=== PATIENT | female | born 1940 | race Caucasian/White ===

== ENCOUNTER 2017-06-11 19:31 | Inpatient (IN) ==
[2017-06-11] MEDS ORDERED: SODIUM CHLORIDE 0.9% 1,000 ML IV STA (21:05)
[2017-06-11] MEDS ORDERED: CEFEPIME 2,000 MG in SODIUM CHLORIDE 0.9% 100 ML IV STA (21:05)
[2017-06-11] MEDS ORDERED: VANCOMYCIN INJ 1,000 MG in SODIUM CHLORIDE 0.9% 250 ML IV STA (21:06)
[2017-06-11 21:11] LABS: Basophils % 0.1 % (0.0-0.8); Eosinophils % 0.1 % (0.00-10.9); Hematocrit 33.2 VOL% (35.7-47.0); Immature Granulocytes % 0.5 %; Immature Granulocytes Absolute 0.07 #; Lymphocytes # 1.5 10*3/uL (1.4-4.0); Lymphocytes % 11.1 % (21.3-54.2); Mean Corpuscular HGB Conc 33.1 GM/DL (32-36); Mean Corpuscular Hemoglobin 30 PG (27-34); Mean Corpuscular Volume 91.7 FL (87-102); Monocytes # 1.5 10*3/uL (0.11-0.8); Monocytes % 10.8 % (1.7-12.7); Neutrophils # 10.5 10*3/uL (1.4-7.4); Neutrophils % 77.4 % (38.7-73.9); Platelet Count 251 T/CUMM (130-400); Red Blood Count 3.62 MC/CUMM (3.8-5.5); Red Cell Distribution Width 14.7 % (9.3-17.3); White Blood Count 13.5 T/CUMM (4-12)
[2017-06-11] MEDS ORDERED: VANCOMYCIN 1,000 MG VIAL ONE (23:34)
[2017-06-11 23:57] LABS: Apearance,Urine CLOUDY (Clear); Bacteria,Urine Occasional /HPF (Few); Bilirubin,Urine Negative (Negative); Blood, Urine Small mg/dL (Negative); Glucose,Urine (UA) Negative (Negative); Ketones,Urine Negative (Negative); Mucus,Urine Occasional /LPF (Occasional); Nitrite,Urine Negative (Negative); Protein,Urine 100 MG/DL; RBC,Urine 16 /HPF (0-4); Squamous Epithelial Cell,Urine Occasional /HPF (0-10); Urine Color Yellow (Yellow); Urine Specific Gravity 1.008 (1.001-1.035); Urine Urobilinogen < 2.0 EU/DL (0.2-1.0); WBC,Urine 42 /HPF (0-6)
[2017-06-12 01:20] LABS: Albumin 2.9 G/DL (3.4-5.0); Bilirubin,Total 0.4 MG/DL (0.2-1.0); Calcium 9.8 MG/DL (8.5-10.1); Osmolality,Calculated 280.5 MOS/KG (273-304); Potassium 5.2 MMOL/L (3.5-5.1); Total Protein 7.3 G/DL (6.4-8.3)
[2017-06-12] MEDS ORDERED: GLUCAGON 1 MG VIAL IM PRN (01:20)
[2017-06-12] MEDS ORDERED: ONDANSETRON 4 MG/2 ML VIAL IV PRN (01:20)
[2017-06-12] MEDS ORDERED: DEXTROSE 50% 25 GM/50 ML VIAL IV PRN (01:20)
[2017-06-12] MEDS: TACROLIMUS 0.5 MG CAPSULE PO SCH ×3 (02:20→20:37)
[2017-06-12] MEDS: MYCOPHENOLATE MOFETIL 250 MG CAPSULE PO SCH ×3 (02:20→20:39)
[2017-06-12] MEDS: ATENOLOL 50 MG TABLET PO SCH ×3 (02:20→21:55)
[2017-06-12] MEDS: LOSARTAN 50 MG TABLET PO SCH ×2 (02:20→09:20)
[2017-06-12] MEDS: SODIUM CHLORIDE 0.9% 1,000 ML IV SCH ×3 (02:26→11:07)
[2017-06-12] MEDS: ACETAMINOPHEN 500 MG TABLET PO PRN ×2 (02:33→20:56)
[2017-06-12] MEDS: ENOXAPARIN 30 MG/0.3 ML SYRINGE SUBCUT SCH ×2 (09:18→09:36)
[2017-06-12] MEDS: CHOLECALCIFEROL 1,000 UNIT TABLET PO SCH (09:18)
[2017-06-12] MEDS: DOCUSATE SODIUM 100 MG CAPSULE PO SCH ×2 (09:19→20:40)
[2017-06-12] MEDS: metFORMIN 500 MG TABLET PO SCH ×2 (09:19→16:47)
[2017-06-12] MEDS: sitaGLIPtin 100 MG TABLET PO SCH (09:19)
[2017-06-12] MEDS: FERROUS SULFATE 325 MG TABLET PO SCH ×2 (09:19→20:38)
[2017-06-12] MEDS: predniSONE 5 MG TABLET PO SCH (09:20)
[2017-06-12] MEDS: FEBUXOSTAT 80 MG TABLET PO SCH (09:20)
[2017-06-12] MEDS: PANTOPRAZOLE 40 MG TABLET PO SCH (09:20)
[2017-06-12] MEDS: ACYCLOVIR 200 MG CAPSULE PO SCH (09:20)
[2017-06-12] MEDS: MUPIROCIN 2% OINT 22 GM TUBE TOP SCH (15:55)
[2017-06-12] MEDS: SODIUM BICARB INJ 150 MEQ in STERILE WATER INJ 1,000 ML IV SCH (16:45)
[2017-06-12] MEDS: ASPIRIN EC 81 MG TABLET PO SCH (20:38)
[2017-06-12] MEDS: CEFEPIME 2,000 MG in SODIUM CHLORIDE 0.9% 50 ML IV SCH (20:40)
[2017-06-12] MEDS: LOSARTAN 25 MG TABLET PO SCH (20:41)
[2017-06-13] MEDS: SODIUM BICARB INJ 150 MEQ in STERILE WATER INJ 1,000 ML IV SCH ×2 (01:58→15:42)
[2017-06-13] MEDS: MUPIROCIN 2% OINT 22 GM TUBE TOP SCH (10:10)
[2017-06-13] MEDS: TACROLIMUS 0.5 MG CAPSULE PO SCH ×2 (12:08→20:38)
[2017-06-13] MEDS: ATENOLOL 50 MG TABLET PO SCH ×2 (12:09→20:39)
[2017-06-13] MEDS: predniSONE 5 MG TABLET PO SCH (12:09)
[2017-06-13] MEDS: PANTOPRAZOLE 40 MG TABLET PO SCH (12:10)
[2017-06-13] MEDS: metFORMIN 500 MG TABLET PO SCH ×2 (12:10→16:41)
[2017-06-13] MEDS: DOCUSATE SODIUM 100 MG CAPSULE PO SCH ×2 (12:10→20:40)
[2017-06-13] MEDS: sitaGLIPtin 100 MG TABLET PO SCH (12:10)
[2017-06-13] MEDS: LOSARTAN 25 MG TABLET PO SCH ×2 (12:10→20:39)
[2017-06-13] MEDS: MYCOPHENOLATE MOFETIL 250 MG CAPSULE PO SCH ×2 (12:11→20:39)
[2017-06-13] MEDS: ENOXAPARIN 30 MG/0.3 ML SYRINGE SUBCUT SCH ×2 (12:11→12:18)
[2017-06-13] MEDS: CHOLECALCIFEROL 1,000 UNIT TABLET PO SCH (12:11)
[2017-06-13] MEDS: ACYCLOVIR 200 MG CAPSULE PO SCH (12:11)
[2017-06-13] MEDS: FERROUS SULFATE 325 MG TABLET PO SCH ×2 (12:11→20:38)
[2017-06-13] MEDS: FUROSEMIDE 20 MG TABLET PO PRN (12:21)
[2017-06-13] MEDS: CEFEPIME 2,000 MG in SODIUM CHLORIDE 0.9% 50 ML IV SCH (20:37)
[2017-06-13] MEDS: ASPIRIN EC 81 MG TABLET PO SCH (20:40)
[2017-06-13] MEDS: ACETAMINOPHEN 500 MG TABLET PO PRN (21:13)
[2017-06-14] MEDS: SODIUM BICARB INJ 150 MEQ in STERILE WATER INJ 1,000 ML IV SCH ×2 (05:53→06:57)
[2017-06-14 06:46] LABS: Calcium 7.9 MG/DL (8.5-10.1); Osmolality,Calculated 278.1 MOS/KG (273-304); Potassium 4.3 MMOL/L (3.5-5.1)
[2017-06-14] MEDS ORDERED: hydrALAZINE 25 MG TABLET ONE (07:20)
[2017-06-14] MEDS: TACROLIMUS 0.5 MG CAPSULE PO SCH ×2 (08:04→20:47)
[2017-06-14] MEDS: PANTOPRAZOLE 40 MG TABLET PO SCH (08:04)
[2017-06-14] MEDS: CHOLECALCIFEROL 1,000 UNIT TABLET PO SCH (08:04)
[2017-06-14] MEDS: metFORMIN 500 MG TABLET PO SCH ×2 (08:05→17:14)
[2017-06-14] MEDS: LOSARTAN 25 MG TABLET PO SCH ×2 (08:05→20:49)
[2017-06-14] MEDS: FERROUS SULFATE 325 MG TABLET PO SCH ×2 (08:05→20:48)
[2017-06-14] MEDS: DOCUSATE SODIUM 100 MG CAPSULE PO SCH ×2 (08:06→20:49)
[2017-06-14] MEDS: ACYCLOVIR 200 MG CAPSULE PO SCH (08:07)
[2017-06-14] MEDS: FEBUXOSTAT 80 MG TABLET PO SCH (08:07)
[2017-06-14] MEDS: ATENOLOL 50 MG TABLET PO SCH ×2 (08:07→20:49)
[2017-06-14] MEDS: predniSONE 5 MG TABLET PO SCH (08:07)
[2017-06-14] MEDS: MYCOPHENOLATE MOFETIL 250 MG CAPSULE PO SCH ×2 (08:07→20:48)
[2017-06-14] MEDS: sitaGLIPtin 100 MG TABLET PO SCH (08:07)
[2017-06-14] MEDS: ENOXAPARIN 40 MG/0.4 ML SYRINGE SUBCUT SCH (08:08)
[2017-06-14] MEDS: CEFEPIME 2,000 MG in SODIUM CHLORIDE 0.9% 50 ML IV SCH ×2 (08:14→20:47)
[2017-06-14] MEDS: MUPIROCIN 2% OINT 22 GM TUBE TOP SCH (08:18)
[2017-06-14] MEDS: FUROSEMIDE 20 MG TABLET PO PRN (15:37)
[2017-06-14] MEDS: ASPIRIN EC 81 MG TABLET PO SCH (20:48)
[2017-06-14] MEDS: ACETAMINOPHEN 500 MG TABLET PO PRN (20:54)
[2017-06-14] MEDS: DOXYCYCLINE HYCLATE 100 MG CAPSULE PO SCH (21:00)
[2017-06-15] MEDS: PANTOPRAZOLE 40 MG TABLET PO SCH (08:14)
[2017-06-15] MEDS: DOCUSATE SODIUM 100 MG CAPSULE PO SCH ×2 (08:15→20:38)
[2017-06-15] MEDS: DOXYCYCLINE HYCLATE 100 MG CAPSULE PO SCH ×2 (08:15→20:36)
[2017-06-15] MEDS: sitaGLIPtin 100 MG TABLET PO SCH (08:15)
[2017-06-15] MEDS: MYCOPHENOLATE MOFETIL 250 MG CAPSULE PO SCH ×2 (08:15→20:37)
[2017-06-15] MEDS: TACROLIMUS 0.5 MG CAPSULE PO SCH ×2 (08:16→20:36)
[2017-06-15] MEDS: metFORMIN 500 MG TABLET PO SCH ×2 (08:16→17:17)
[2017-06-15] MEDS: FERROUS SULFATE 325 MG TABLET PO SCH ×2 (08:16→20:38)
[2017-06-15] MEDS: predniSONE 5 MG TABLET PO SCH (08:16)
[2017-06-15] MEDS: ATENOLOL 50 MG TABLET PO SCH ×2 (08:17→20:37)
[2017-06-15] MEDS: CHOLECALCIFEROL 1,000 UNIT TABLET PO SCH (08:17)
[2017-06-15] MEDS: ENOXAPARIN 40 MG/0.4 ML SYRINGE SUBCUT SCH (08:17)
[2017-06-15] MEDS: CEFEPIME 2,000 MG in SODIUM CHLORIDE 0.9% 50 ML IV SCH (08:17)
[2017-06-15] MEDS: LOSARTAN 25 MG TABLET PO SCH ×2 (08:17→20:38)
[2017-06-15] MEDS: ACYCLOVIR 200 MG CAPSULE PO SCH (08:17)
[2017-06-15] MEDS: MEROPENEM 1,000 MG in SODIUM CHLORIDE 0.9% 50 ML IV SCH ×2 (09:47→17:18)
[2017-06-15 09:50] LABS: Basophils % 0.1 % (0.0-0.8); Eosinophils # 0.1 10*3/uL (0.0-0.87); Eosinophils % 0.6 % (0.00-10.9); Hematocrit 30.2 VOL% (35.7-47.0); Hemoglobin 9.9 GM/DL (12.0-16.0); Immature Granulocytes % 0.6 %; Immature Granulocytes Absolute 0.06 #; Lymphocytes # 1.4 10*3/uL (1.4-4.0); Lymphocytes % 12.9 % (21.3-54.2); Mean Corpuscular HGB Conc 32.8 GM/DL (32-36); Mean Corpuscular Hemoglobin 31 PG (27-34); Mean Corpuscular Volume 92.9 FL (87-102); Mean Platelet Volume 9.5 FL (9.6-12.0); Monocytes % 8.9 % (1.7-12.7); Neutrophils # 8.4 10*3/uL (1.4-7.4); Neutrophils % 76.9 % (38.7-73.9); Platelet Count 327 T/CUMM (130-400); Red Blood Count 3.25 MC/CUMM (3.8-5.5); Red Cell Distribution Width 14.6 % (9.3-17.3); White Blood Count 10.9 T/CUMM (4-12)
[2017-06-15] MEDS ORDERED: VANCOMYCIN IV SCH (10:00)
[2017-06-15] MEDS ORDERED: SODIUM CHLORIDE 0.9% IV SCH (10:00)
[2017-06-15] MEDS: MUPIROCIN 2% OINT 22 GM TUBE TOP SCH (10:09)
[2017-06-15 10:15] LABS: Calcium 8.3 MG/DL (8.5-10.1); Osmolality,Calculated 278.2 MOS/KG (273-304); Potassium 3.9 MMOL/L (3.5-5.1)
[2017-06-15] MEDS: VANCOMYCIN INJ 750 MG in SODIUM CHLORIDE 0.9% 150 ML IV SCH (12:58)
[2017-06-15] MEDS: FUROSEMIDE 20 MG TABLET PO PRN (17:20)
[2017-06-15] MEDS: ACETAMINOPHEN 500 MG TABLET PO PRN (20:35)
[2017-06-15] MEDS: ASPIRIN EC 81 MG TABLET PO SCH (20:38)
[2017-06-16] MEDS: MEROPENEM 1,000 MG in SODIUM CHLORIDE 0.9% 50 ML IV SCH ×3 (01:07→16:08)
[2017-06-16 05:06] LABS: Calcium 8.4 MG/DL (8.5-10.1); Magnesium 1.5 MG/DL (1.8-2.4); Osmolality,Calculated 278.2 MOS/KG (273-304); Potassium 4.4 MMOL/L (3.5-5.1)
[2017-06-16] MEDS: ENOXAPARIN 40 MG/0.4 ML SYRINGE SUBCUT SCH (10:17)
[2017-06-16] MEDS: metFORMIN 500 MG TABLET PO SCH ×2 (10:19→16:08)
[2017-06-16] MEDS: CHOLECALCIFEROL 1,000 UNIT TABLET PO SCH (10:19)
[2017-06-16] MEDS: ATENOLOL 50 MG TABLET PO SCH ×2 (10:19→20:40)
[2017-06-16] MEDS: FERROUS SULFATE 325 MG TABLET PO SCH ×2 (10:19→20:38)
[2017-06-16] MEDS: MYCOPHENOLATE MOFETIL 250 MG CAPSULE PO SCH ×2 (10:20→20:39)
[2017-06-16] MEDS: sitaGLIPtin 100 MG TABLET PO SCH (10:20)
[2017-06-16] MEDS: DOXYCYCLINE HYCLATE 100 MG CAPSULE PO SCH ×2 (10:20→20:50)
[2017-06-16] MEDS: TACROLIMUS 0.5 MG CAPSULE PO SCH ×2 (10:20→20:38)
[2017-06-16] MEDS: LOSARTAN 25 MG TABLET PO SCH ×2 (10:21→20:39)
[2017-06-16] MEDS: amLODIPine 5 MG TABLET PO SCH (10:21)
[2017-06-16] MEDS: ACYCLOVIR 200 MG CAPSULE PO SCH (10:21)
[2017-06-16] MEDS: predniSONE 5 MG TABLET PO SCH (10:22)
[2017-06-16] MEDS: FEBUXOSTAT 80 MG TABLET PO SCH (10:22)
[2017-06-16] MEDS: PANTOPRAZOLE 40 MG TABLET PO SCH (10:22)
[2017-06-16] MEDS: FUROSEMIDE 20 MG TABLET PO PRN (10:23)
[2017-06-16] MEDS: DOCUSATE SODIUM 100 MG CAPSULE PO SCH ×2 (10:24→20:39)
[2017-06-16] MEDS: MUPIROCIN 2% OINT 22 GM TUBE TOP SCH (10:24)
[2017-06-16] MEDS: VANCOMYCIN INJ 750 MG in SODIUM CHLORIDE 0.9% 150 ML IV SCH (12:33)
[2017-06-16] MEDS: FUROSEMIDE 20 MG/2 ML VIAL IV SCH (16:08)
[2017-06-16] MEDS: ASPIRIN EC 81 MG TABLET PO SCH (20:40)
[2017-06-16] MEDS: ACETAMINOPHEN 500 MG TABLET PO PRN (20:49)
[2017-06-17] MEDS: MEROPENEM 1,000 MG in SODIUM CHLORIDE 0.9% 50 ML IV SCH ×3 (01:10→16:51)
[2017-06-17 03:47] LABS: Calcium 8.1 MG/DL (8.5-10.1); Magnesium 1.3 MG/DL (1.8-2.4); Osmolality,Calculated 283.7 MOS/KG (273-304); Potassium 3.9 MMOL/L (3.5-5.1)
[2017-06-17] MEDS: ATENOLOL 50 MG TABLET PO SCH (09:16)
[2017-06-17] MEDS: LOSARTAN 25 MG TABLET PO SCH (09:16)
[2017-06-17] MEDS: amLODIPine 5 MG TABLET PO SCH (09:16)
[2017-06-17] MEDS: ENOXAPARIN 40 MG/0.4 ML SYRINGE SUBCUT SCH (09:18)
[2017-06-17] MEDS: predniSONE 5 MG TABLET PO SCH (09:19)
[2017-06-17] MEDS: metFORMIN 500 MG TABLET PO SCH ×2 (09:19→16:51)
[2017-06-17] MEDS: CHOLECALCIFEROL 1,000 UNIT TABLET PO SCH (09:19)
[2017-06-17] MEDS: TACROLIMUS 0.5 MG CAPSULE PO SCH ×2 (09:19→20:28)
[2017-06-17] MEDS: DOXYCYCLINE HYCLATE 100 MG CAPSULE PO SCH ×2 (09:19→20:28)
[2017-06-17] MEDS: PANTOPRAZOLE 40 MG TABLET PO SCH (09:20)
[2017-06-17] MEDS: sitaGLIPtin 100 MG TABLET PO SCH (09:20)
[2017-06-17] MEDS: ACYCLOVIR 200 MG CAPSULE PO SCH (09:20)
[2017-06-17] MEDS: DOCUSATE SODIUM 100 MG CAPSULE PO SCH ×2 (09:21→20:28)
[2017-06-17] MEDS: MUPIROCIN 2% OINT 22 GM TUBE TOP SCH (09:21)
[2017-06-17] MEDS: FERROUS SULFATE 325 MG TABLET PO SCH ×2 (09:21→20:28)
[2017-06-17] MEDS: MYCOPHENOLATE MOFETIL 250 MG CAPSULE PO SCH ×2 (09:22→20:28)
[2017-06-17] MEDS: FUROSEMIDE 20 MG/2 ML VIAL IV SCH ×2 (09:26→16:51)
[2017-06-17] MEDS: amLODIPine 10 MG TABLET PO SCH (09:35)
[2017-06-17] MEDS: VANCOMYCIN INJ 750 MG in SODIUM CHLORIDE 0.9% 150 ML IV SCH (12:10)
[2017-06-17] MEDS: ASPIRIN EC 81 MG TABLET PO SCH (20:28)
[2017-06-17] MEDS: ACETAMINOPHEN 500 MG TABLET PO PRN (20:35)
[2017-06-18] MEDS: MEROPENEM 1,000 MG in SODIUM CHLORIDE 0.9% 50 ML IV SCH ×2 (01:13→09:43)
[2017-06-18 06:57] LABS: Calcium 8.7 MG/DL (8.5-10.1); Magnesium 1.2 MG/DL (1.8-2.4); Osmolality,Calculated 280.7 MOS/KG (273-304); Potassium 4.4 MMOL/L (3.5-5.1)
[2017-06-18] MEDS ORDERED: LOSARTAN 50 MG TABLET PO SCH (09:00)
[2017-06-18] MEDS ORDERED: ATENOLOL 50 MG TABLET PO SCH (09:00)
[2017-06-18] MEDS: FERROUS SULFATE 325 MG TABLET PO SCH (09:25)
[2017-06-18] MEDS: amLODIPine 10 MG TABLET PO SCH ×2 (09:25→09:53)
[2017-06-18] MEDS: predniSONE 5 MG TABLET PO SCH (09:25)
[2017-06-18] MEDS: CHOLECALCIFEROL 1,000 UNIT TABLET PO SCH (09:25)
[2017-06-18] MEDS: DOXYCYCLINE HYCLATE 100 MG CAPSULE PO SCH (09:25)
[2017-06-18] MEDS: MYCOPHENOLATE MOFETIL 250 MG CAPSULE PO SCH (09:26)
[2017-06-18] MEDS: metFORMIN 500 MG TABLET PO SCH (09:26)
[2017-06-18] MEDS: sitaGLIPtin 100 MG TABLET PO SCH (09:26)
[2017-06-18] MEDS: PANTOPRAZOLE 40 MG TABLET PO SCH (09:26)
[2017-06-18] MEDS: FEBUXOSTAT 80 MG TABLET PO SCH (09:26)
[2017-06-18] MEDS: ACYCLOVIR 200 MG CAPSULE PO SCH (09:26)
[2017-06-18] MEDS: DOCUSATE SODIUM 100 MG CAPSULE PO SCH (09:27)
[2017-06-18] MEDS: ENOXAPARIN 40 MG/0.4 ML SYRINGE SUBCUT SCH (09:28)
[2017-06-18] MEDS: MUPIROCIN 2% OINT 22 GM TUBE TOP SCH (09:28)
[2017-06-18] MEDS: FUROSEMIDE 20 MG/2 ML VIAL IV SCH (09:37)
[2017-06-18] MEDS: TACROLIMUS 0.5 MG CAPSULE PO SCH (09:37)
[2017-06-18 12:59] VITALS: BP 166/70
[2017-06-18] MEDS: VANCOMYCIN INJ 750 MG in SODIUM CHLORIDE 0.9% 150 ML IV SCH (13:33)
== END 2017-06-18 13:21 | disposition home or self-care (01) | DRG 682 ==
LOC: N.ED 19:31 → N.EDINP 06-12 00:18 → N.2E 06-12 00:53
PROVIDERS: ADMIT Hospitalist; ATTEND Hospitalist

== ENCOUNTER 2017-08-07 08:56 | Inpatient (IN) ==
[2017-08-07] MEDS ORDERED: ACETAMINOPHEN 325 MG TABLET PO PRN (12:37)
[2017-08-07] MEDS ORDERED: ALBUTEROL 2.5 MG/3 ML NEB RESP TX PRN (12:37)
[2017-08-07] MEDS ORDERED: DILTIAZEM 100 MG VIAL.ADD IV ONE ×3 (12:50→13:04)
[2017-08-07] MEDS ORDERED: DILTIAZEM 50 MG/10 ML VIAL IV ONE ×2 (12:52→12:54)
[2017-08-07 12:58] LABS: Basophils % 0.2 % (0.0-0.8); Hematocrit 29.3 VOL% (35.7-47.0); Hemoglobin 9.8 GM/DL (12.0-16.0); Immature Granulocytes % 0.8 %; Immature Granulocytes Absolute 0.05 #; Lymphocytes # 0.9 10*3/uL (1.4-4.0); Lymphocytes % 14.3 % (21.3-54.2); Mean Corpuscular HGB Conc 33.4 GM/DL (32-36); Mean Corpuscular Hemoglobin 30 PG (27-34); Mean Corpuscular Volume 89.3 FL (87-102); Monocytes # 0.4 10*3/uL (0.11-0.8); Monocytes % 6.8 % (1.7-12.7); Neutrophils # 4.8 10*3/uL (1.4-7.4); Neutrophils % 77.9 % (38.7-73.9); Platelet Count 307 T/CUMM (130-400); Red Blood Count 3.28 MC/CUMM (3.8-5.5); Red Cell Distribution Width 14.9 % (9.3-17.3); White Blood Count 6.2 T/CUMM (4-12)
[2017-08-07] MEDS ORDERED: DILTIAZEM INJ 100 MG in SODIUM CHLORIDE 0.9% 100 ML IV SCH (13:00)
[2017-08-07 13:30] LABS: Alanine Aminotransferase 37 U/L (13-56); Alkaline Phosphatase 114 U/L (45-117); Aspartate Amino Transferase 33 U/L (0-37); Bilirubin,Total < 0.39 MG/DL (0.2-1.0); Blood Urea Nitrogen 37 MG/DL (7-18); Calcium 8.2 MG/DL (8.5-10.1); Glucose 331 MG/DL (74-106); Osmolality,Calculated 287.4 MOS/KG (273-304); Potassium 4.7 MMOL/L (3.5-5.1); Sodium 133 MMOL/L (136-145); Total Protein 4.6 G/DL (6.4-8.3)
[2017-08-07] MEDS ORDERED: GLUCAGON 1 MG VIAL IM PRN ×2 (14:11→15:32)
[2017-08-07] MEDS ORDERED: DEXTROSE 50% 25 GM/50 ML VIAL IV PRN ×2 (14:11→15:32)
[2017-08-07] MEDS: BACITRACIN OINT 0.9 GM PACK TOP SCH (15:25)
[2017-08-07] MEDS ORDERED: traMADol 50 MG TABLET PO PRN (15:26)
[2017-08-07] MEDS: SKIN HEALING OINT (AQUAPHOR) 50 GM TUBE TOP PRN (15:32)
[2017-08-07] MEDS: FUROSEMIDE 40 MG/4 ML VIAL IV SCH (15:39)
[2017-08-07] MEDS: ENOXAPARIN 60 MG/0.6 ML SYRINGE SUBCUT SCH (16:08)
[2017-08-07] MEDS: INSULIN LISPRO 100 UNIT/ML SUBCUT SCH ×2 (16:08→21:39)
[2017-08-07 16:44] LABS: Apearance,Urine Slightly Hazy (Clear); Bilirubin,Urine Negative (Negative); Blood, Urine Negative (Negative); Glucose,Urine (UA) 50 mg/dL (Negative); Ketones,Urine Negative (Negative); Mucus,Urine Occasional /LPF (Occasional); Nitrite,Urine Negative (Negative); Protein,Urine 100 MG/DL; RBC,Urine 11 /HPF (0-4); Squamous Epithelial Cell,Urine Occasional /HPF (0-10); Urine Color Yellow (Yellow); Urine Specific Gravity 1.009 (1.001-1.035); Urine Urobilinogen < 2.0 EU/DL (0.2-1.0); WBC,Urine 5 /HPF (0-6)
[2017-08-07] MEDS: PIPERACILLIN/TAZOBACTAM 3,375 MG in SODIUM CHLORIDE 0.9% 100 ML IV SCH (17:12)
[2017-08-07] MEDS: ASPIRIN EC 81 MG TABLET PO SCH (21:40)
[2017-08-07] MEDS: TACROLIMUS 0.5 MG CAPSULE PO SCH (21:40)
[2017-08-07] MEDS: MYCOPHENOLATE MOFETIL 250 MG CAPSULE PO SCH (21:40)
[2017-08-07] MEDS: ATENOLOL 50 MG TABLET PO SCH (21:41)
[2017-08-08] MEDS: PIPERACILLIN/TAZOBACTAM 3,375 MG in SODIUM CHLORIDE 0.9% 100 ML IV SCH ×3 (01:00→16:32)
[2017-08-08] MEDS: ATENOLOL 50 MG TABLET PO SCH (04:19)
[2017-08-08 05:00] LABS: Basophils % 0.1 % (0.0-0.8); Eosinophils # 0.1 10*3/uL (0.0-0.87); Hematocrit 27.2 VOL% (35.7-47.0); Hemoglobin 8.8 GM/DL (12.0-16.0); Immature Granulocytes % 0.6 %; Immature Granulocytes Absolute 0.04 #; Lymphocytes # 2.1 10*3/uL (1.4-4.0); Lymphocytes % 29.8 % (21.3-54.2); Mean Corpuscular HGB Conc 32.4 GM/DL (32-36); Mean Corpuscular Hemoglobin 29 PG (27-34); Mean Platelet Volume 9.5 FL (9.6-12.0); Monocytes # 0.7 10*3/uL (0.11-0.8); Monocytes % 9.5 % (1.7-12.7); Neutrophils # 4.2 10*3/uL (1.4-7.4); Platelet Count 331 T/CUMM (130-400); Red Blood Count 2.99 MC/CUMM (3.8-5.5); Red Cell Distribution Width 14.8 % (9.3-17.3); White Blood Count 7.1 T/CUMM (4-12)
[2017-08-08] MEDS: ENOXAPARIN 60 MG/0.6 ML SYRINGE SUBCUT SCH (05:10)
[2017-08-08 05:37] LABS: Osmolality,Calculated 281.7 MOS/KG (273-304); Potassium 4.6 MMOL/L (3.5-5.1)
[2017-08-08] MEDS: FUROSEMIDE 40 MG/4 ML VIAL IV SCH ×2 (08:50→16:25)
[2017-08-08] MEDS ORDERED: predniSONE 5 MG TABLET PO SCH (09:00)
[2017-08-08] MEDS ORDERED: methylPREDNISolone SOD SUC 40 MG/1 ML VIAL IV SCH (09:00)
[2017-08-08] MEDS: ACYCLOVIR 200 MG CAPSULE PO SCH (09:04)
[2017-08-08] MEDS: MYCOPHENOLATE MOFETIL 250 MG CAPSULE PO SCH ×2 (09:04→20:28)
[2017-08-08] MEDS: CHOLECALCIFEROL 1,000 UNIT TABLET PO SCH (09:05)
[2017-08-08] MEDS: TACROLIMUS 0.5 MG CAPSULE PO SCH ×2 (09:05→20:27)
[2017-08-08] MEDS: INSULIN LISPRO 100 UNIT/ML SUBCUT SCH ×4 (09:13→20:26)
[2017-08-08] MEDS: sitaGLIPtin 100 MG TABLET PO SCH (10:22)
[2017-08-08] MEDS: BACITRACIN OINT 0.9 GM PACK TOP SCH (12:25)
[2017-08-08] MEDS: SKIN HEALING OINT (AQUAPHOR) 50 GM TUBE TOP PRN (12:25)
[2017-08-08] MEDS ORDERED: diphenhydrAMINE CAP 25 MG CAPSULE PO ONE (17:04)
[2017-08-08] MEDS ORDERED: DEXTROSE 5% NACL 0.45% 1,000 ML IV SCH (17:30)
[2017-08-08] MEDS: ASPIRIN EC 81 MG TABLET PO SCH (20:28)
[2017-08-09] MEDS: PIPERACILLIN/TAZOBACTAM 3,375 MG in SODIUM CHLORIDE 0.9% 100 ML IV SCH ×4 (01:00→23:35)
[2017-08-09 04:40] LABS: Hematocrit 25.9 VOL% (35.7-47.0); Hemoglobin 8.4 GM/DL (12.0-16.0); Immature Granulocytes % 0.9 %; Immature Granulocytes Absolute 0.02 #; Lymphocytes # 0.6 10*3/uL (1.4-4.0); Lymphocytes % 26.6 % (21.3-54.2); Mean Corpuscular HGB Conc 32.4 GM/DL (32-36); Mean Corpuscular Hemoglobin 29 PG (27-34); Mean Corpuscular Volume 90.2 FL (87-102); Mean Platelet Volume 9.6 FL (9.6-12.0); Monocytes # 0.1 10*3/uL (0.11-0.8); Monocytes % 5.9 % (1.7-12.7); Neutrophils # 1.5 10*3/uL (1.4-7.4); Neutrophils % 66.6 % (38.7-73.9); Platelet Count 299 T/CUMM (130-400); Red Blood Count 2.87 MC/CUMM (3.8-5.5); Red Cell Distribution Width 14.6 % (9.3-17.3); White Blood Count 2.2 T/CUMM (4-12)
[2017-08-09 04:53] LABS: PT Patient Result 10.7 SECS; Partial Thromboplastin Time 30.8 SECS (0-40)
[2017-08-09 05:01] LABS: Potassium 4.9 MMOL/L (3.5-5.1)
[2017-08-09] MEDS ORDERED: hydrALAZINE 20 MG/1 ML VIAL IV ONE (05:30)
[2017-08-09] MEDS ORDERED: VANCOMYCIN INJ 500 MG in SODIUM CHLORIDE 0.9% 100 ML IV ONE ×2 (06:30→09:00)
[2017-08-09] MEDS: INSULIN LISPRO 100 UNIT/ML SUBCUT SCH ×4 (06:35→20:58)
[2017-08-09] MEDS ORDERED: MAGNESIUM SULF RIDER 2 GM in PREMIX 1 EACH IV ONE (08:07)
[2017-08-09] MEDS: MYCOPHENOLATE MOFETIL 250 MG CAPSULE PO SCH ×2 (08:27→20:57)
[2017-08-09] MEDS: ACYCLOVIR 200 MG CAPSULE PO SCH (08:27)
[2017-08-09] MEDS: FEBUXOSTAT 80 MG TABLET PO SCH ×2 (08:28→14:09)
[2017-08-09] MEDS: BENZONATATE 100 MG CAPSULE PO PRN (08:28)
[2017-08-09] MEDS: TACROLIMUS 0.5 MG CAPSULE PO SCH ×2 (08:28→20:58)
[2017-08-09] MEDS: BACITRACIN OINT 0.9 GM PACK TOP SCH (08:30)
[2017-08-09] MEDS: FUROSEMIDE 40 MG/4 ML VIAL IV SCH (08:34)
[2017-08-09] MEDS ORDERED: methylPREDNISolone SOD SUC 40 MG/1 ML VIAL IV SCH (09:00)
[2017-08-09] MEDS ORDERED: diphenhydrAMINE CAP 25 MG CAPSULE PO ONE (09:00)
[2017-08-09] MEDS ORDERED: MIDAZOLAM 2 MG/2 ML VIAL ONE (10:04)
[2017-08-09] MEDS ORDERED: HEPARIN/NACL 0.9% 2 UNITS/ML 1,000 ML IV ONE (10:04)
[2017-08-09] MEDS ORDERED: fentaNYL 100 MCG/2 ML VIAL ONE (10:04)
[2017-08-09] MEDS ORDERED: LIDOCAINE 2%/EPI 20 ML VIAL ONE (10:04)
[2017-08-09] MEDS ORDERED: VANCOMYCIN 500 MG VIAL ONE (10:05)
[2017-08-09] MEDS ORDERED: HYDROmorphone 2 MG/1 ML VIAL ONE (10:24)
[2017-08-09] MEDS: ENOXAPARIN 40 MG/0.4 ML SYRINGE SUBCUT SCH (13:25)
[2017-08-09] MEDS: sitaGLIPtin 100 MG TABLET PO SCH (14:10)
[2017-08-09] MEDS: CHOLECALCIFEROL 1,000 UNIT TABLET PO SCH (14:10)
[2017-08-09] MEDS: DEXTROSE 5% NACL 0.45% 1,000 ML IV SCH (14:12)
[2017-08-09] MEDS: FUROSEMIDE 40 MG TABLET PO SCH (16:19)
[2017-08-09] MEDS ORDERED: INSULIN REGULAR 100 UNIT/ML IV ONE (18:31)
[2017-08-09] MEDS: ASPIRIN EC 81 MG TABLET PO SCH (20:57)
[2017-08-10] MEDS: BENZONATATE 100 MG CAPSULE PO PRN ×2 (02:29→09:04)
[2017-08-10] MEDS: hydrALAZINE 20 MG/1 ML VIAL IV PRN (03:10)
[2017-08-10 05:48] LABS: Hematocrit 27.2 VOL% (35.7-47.0); Hemoglobin 8.9 GM/DL (12.0-16.0); Immature Granulocytes % 0.8 %; Immature Granulocytes Absolute 0.04 #; Lymphocytes # 0.9 10*3/uL (1.4-4.0); Lymphocytes % 17.4 % (21.3-54.2); Mean Corpuscular HGB Conc 32.7 GM/DL (32-36); Mean Corpuscular Hemoglobin 29 PG (27-34); Mean Corpuscular Volume 89.2 FL (87-102); Mean Platelet Volume 9.4 FL (9.6-12.0); Monocytes # 0.4 10*3/uL (0.11-0.8); Monocytes % 7.1 % (1.7-12.7); Neutrophils # 3.9 10*3/uL (1.4-7.4); Neutrophils % 74.7 % (38.7-73.9); Platelet Count 349 T/CUMM (130-400); Red Blood Count 3.05 MC/CUMM (3.8-5.5); Red Cell Distribution Width 14.9 % (9.3-17.3); White Blood Count 5.2 T/CUMM (4-12)
[2017-08-10] MEDS: INSULIN LISPRO 100 UNIT/ML SUBCUT SCH ×5 (06:07→21:12)
[2017-08-10 06:22] LABS: Calcium 8.2 MG/DL (8.5-10.1); Osmolality,Calculated 300.8 MOS/KG (273-304); Potassium 4.8 MMOL/L (3.5-5.1)
[2017-08-10] MEDS ORDERED: METOPROLOL TARTRATE 5 MG/5 ML VIAL IV ONE (08:33)
[2017-08-10] MEDS ORDERED: DIGOXIN 0.5 MG/2 ML AMP IV ONE (08:33)
[2017-08-10] MEDS ORDERED: predniSONE 5 MG TABLET PO SCH (09:00)
[2017-08-10] MEDS ORDERED: AMIODARONE INJ 150 MG in DEXTROSE 5% 100 ML IV ONE (09:03)
[2017-08-10] MEDS: ENOXAPARIN 40 MG/0.4 ML SYRINGE SUBCUT SCH (09:03)
[2017-08-10] MEDS ORDERED: DILTIAZEM 50 MG/10 ML VIAL IV ONE (09:03)
[2017-08-10] MEDS: TACROLIMUS 0.5 MG CAPSULE PO SCH ×2 (09:03→21:12)
[2017-08-10] MEDS: FUROSEMIDE 40 MG TABLET PO SCH (09:04)
[2017-08-10] MEDS: sitaGLIPtin 100 MG TABLET PO SCH (09:04)
[2017-08-10] MEDS: MYCOPHENOLATE MOFETIL 250 MG CAPSULE PO SCH ×2 (09:04→21:13)
[2017-08-10] MEDS: CHOLECALCIFEROL 1,000 UNIT TABLET PO SCH (09:04)
[2017-08-10] MEDS: ACYCLOVIR 200 MG CAPSULE PO SCH (09:05)
[2017-08-10] MEDS: METOPROLOL TARTRATE 50 MG TABLET PO SCH ×2 (09:05→21:13)
[2017-08-10] MEDS: BACITRACIN OINT 0.9 GM PACK TOP SCH (09:05)
[2017-08-10] MEDS: DEXTROSE 5% NACL 0.45% 1,000 ML IV SCH (09:29)
[2017-08-10] MEDS ORDERED: AMIODARONE INJ 450 MG in DEXTROSE 5% 241 ML IV SCH (09:30)
[2017-08-10] MEDS: DILTIAZEM INJ 100 MG in SODIUM CHLORIDE 0.9% 100 ML IV SCH (09:54)
[2017-08-10] MEDS: PIPERACILLIN/TAZOBACTAM 3,375 MG in SODIUM CHLORIDE 0.9% 100 ML IV SCH (11:20)
[2017-08-10] MEDS: predniSONE 20 MG TABLET PO SCH (14:28)
[2017-08-10] MEDS ORDERED: ALBUTEROL 2.5 MG/3 ML NEB RESP TX ONE (15:40)
[2017-08-10] MEDS: ALBUTEROL 2.5 MG/3 ML NEB RESP TX SCH ×2 (16:25→20:14)
[2017-08-10] MEDS: AMIODARONE INJ 450 MG in DEXTROSE 5% 241 ML IV SCH (17:02)
[2017-08-10] MEDS: FUROSEMIDE 20 MG TABLET PO SCH (17:50)
[2017-08-10] MEDS: ASPIRIN EC 81 MG TABLET PO SCH (21:13)
[2017-08-11] MEDS: INSULIN LISPRO 100 UNIT/ML SUBCUT SCH ×6 (00:38→20:24)
[2017-08-11 04:12] LABS: Calcium 8.4 MG/DL (8.5-10.1); Magnesium 1.8 MG/DL (1.8-2.4); Osmolality,Calculated 302.8 MOS/KG (273-304); Potassium 4.4 MMOL/L (3.5-5.1)
[2017-08-11] MEDS: ALBUTEROL 2.5 MG/3 ML NEB RESP TX SCH ×3 (07:56→20:08)
[2017-08-11] MEDS ORDERED: glyBURIDE 5 MG TABLET PO SCH (08:00)
[2017-08-11] MEDS: sitaGLIPtin 100 MG TABLET PO SCH (08:59)
[2017-08-11] MEDS: CHOLECALCIFEROL 1,000 UNIT TABLET PO SCH (08:59)
[2017-08-11] MEDS: ACYCLOVIR 200 MG CAPSULE PO SCH (08:59)
[2017-08-11] MEDS: FUROSEMIDE 40 MG TABLET PO SCH (09:00)
[2017-08-11] MEDS: FEBUXOSTAT 80 MG TABLET PO SCH (09:00)
[2017-08-11] MEDS: MYCOPHENOLATE MOFETIL 250 MG CAPSULE PO SCH ×2 (09:00→20:24)
[2017-08-11] MEDS: predniSONE 20 MG TABLET PO SCH (09:01)
[2017-08-11] MEDS: METOPROLOL TARTRATE 50 MG TABLET PO SCH ×2 (09:01→20:23)
[2017-08-11] MEDS: ENOXAPARIN 40 MG/0.4 ML SYRINGE SUBCUT SCH (09:02)
[2017-08-11] MEDS: TACROLIMUS 0.5 MG CAPSULE PO SCH ×2 (09:03→20:24)
[2017-08-11] MEDS: BACITRACIN OINT 0.9 GM PACK TOP SCH (09:04)
[2017-08-11] MEDS: DILTIAZEM INJ 100 MG in SODIUM CHLORIDE 0.9% 100 ML IV SCH (09:12)
[2017-08-11] MEDS: AMIODARONE INJ 450 MG in DEXTROSE 5% 241 ML IV SCH (09:13)
[2017-08-11] MEDS: AMIODARONE 200 MG TABLET PO SCH (11:54)
[2017-08-11] MEDS ORDERED: TUBERCULIN SKIN TEST 0.1 ML SYRINGE INTRADERM ONE (15:19)
[2017-08-11] MEDS: FUROSEMIDE 20 MG TABLET PO SCH (17:35)
[2017-08-11] MEDS: ASPIRIN EC 81 MG TABLET PO SCH (20:24)
[2017-08-11] MEDS: glyBURIDE 5 MG TABLET PO SCH (20:24)
[2017-08-12] MEDS: hydrALAZINE 20 MG/1 ML VIAL IV PRN ×2 (00:05→05:44)
[2017-08-12] MEDS: INSULIN LISPRO 100 UNIT/ML SUBCUT SCH ×6 (00:05→21:09)
[2017-08-12 03:05] LABS: Hematocrit 25.3 VOL% (35.7-47.0); Hemoglobin 8.2 GM/DL (12.0-16.0); Immature Granulocytes % 0.5 %; Immature Granulocytes Absolute 0.03 #; Lymphocytes % 14.8 % (21.3-54.2); Mean Corpuscular HGB Conc 32.4 GM/DL (32-36); Mean Corpuscular Hemoglobin 29 PG (27-34); Mean Platelet Volume 9.5 FL (9.6-12.0); Monocytes # 0.4 10*3/uL (0.11-0.8); Monocytes % 6.7 % (1.7-12.7); Neutrophils # 5.1 10*3/uL (1.4-7.4); Platelet Count 353 T/CUMM (130-400); Red Blood Count 2.81 MC/CUMM (3.8-5.5); Red Cell Distribution Width 14.9 % (9.3-17.3); White Blood Count 6.6 T/CUMM (4-12)
[2017-08-12 03:59] LABS: Calcium 8.6 MG/DL (8.5-10.1); Magnesium 1.8 MG/DL (1.8-2.4); Osmolality,Calculated 298.7 MOS/KG (273-304); Potassium 4.4 MMOL/L (3.5-5.1)
[2017-08-12] MEDS: ALBUTEROL 2.5 MG/3 ML NEB RESP TX SCH ×3 (08:20→21:07)
[2017-08-12] MEDS: TACROLIMUS 0.5 MG CAPSULE PO SCH ×2 (09:09→20:37)
[2017-08-12] MEDS: CHOLECALCIFEROL 1,000 UNIT TABLET PO SCH (09:09)
[2017-08-12] MEDS: glyBURIDE 5 MG TABLET PO SCH ×2 (09:09→20:37)
[2017-08-12] MEDS: MYCOPHENOLATE MOFETIL 250 MG CAPSULE PO SCH ×2 (09:10→20:37)
[2017-08-12] MEDS: BACITRACIN OINT 0.9 GM PACK TOP SCH (09:10)
[2017-08-12] MEDS: AMIODARONE 200 MG TABLET PO SCH (09:10)
[2017-08-12] MEDS: ENOXAPARIN 40 MG/0.4 ML SYRINGE SUBCUT SCH (09:12)
[2017-08-12] MEDS: FUROSEMIDE 40 MG TABLET PO SCH (09:13)
[2017-08-12] MEDS: sitaGLIPtin 100 MG TABLET PO SCH (09:13)
[2017-08-12] MEDS: METOPROLOL TARTRATE 50 MG TABLET PO SCH ×2 (09:14→20:38)
[2017-08-12] MEDS: predniSONE 20 MG TABLET PO SCH (09:14)
[2017-08-12] MEDS: ACYCLOVIR 200 MG CAPSULE PO SCH (09:16)
[2017-08-12] MEDS: LOSARTAN 50 MG TABLET PO SCH ×2 (11:01→20:38)
[2017-08-12] MEDS: FUROSEMIDE 20 MG TABLET PO SCH (17:43)
[2017-08-12] MEDS: ASPIRIN EC 81 MG TABLET PO SCH (20:38)
[2017-08-13] MEDS: hydrALAZINE 20 MG/1 ML VIAL IV PRN ×2 (01:25→22:09)
[2017-08-13] MEDS: INSULIN LISPRO 100 UNIT/ML SUBCUT SCH ×6 (01:25→22:09)
[2017-08-13] MEDS: ALBUTEROL 2.5 MG/3 ML NEB RESP TX SCH ×3 (07:36→19:51)
[2017-08-13] MEDS: FEBUXOSTAT 80 MG TABLET PO SCH (09:16)
[2017-08-13] MEDS: ACYCLOVIR 200 MG CAPSULE PO SCH (09:16)
[2017-08-13] MEDS: CHOLECALCIFEROL 1,000 UNIT TABLET PO SCH (09:16)
[2017-08-13] MEDS: LOSARTAN 50 MG TABLET PO SCH ×2 (09:16→22:09)
[2017-08-13] MEDS: glyBURIDE 5 MG TABLET PO SCH ×2 (09:17→22:08)
[2017-08-13] MEDS: AMIODARONE 200 MG TABLET PO SCH (09:18)
[2017-08-13] MEDS: MYCOPHENOLATE MOFETIL 250 MG CAPSULE PO SCH ×2 (09:18→22:07)
[2017-08-13] MEDS: sitaGLIPtin 100 MG TABLET PO SCH (09:18)
[2017-08-13] MEDS: FUROSEMIDE 40 MG TABLET PO SCH (09:18)
[2017-08-13] MEDS: METOPROLOL TARTRATE 50 MG TABLET PO SCH ×2 (09:18→22:09)
[2017-08-13] MEDS: BACITRACIN OINT 0.9 GM PACK TOP SCH (09:18)
[2017-08-13] MEDS: TACROLIMUS 0.5 MG CAPSULE PO SCH ×2 (09:19→22:08)
[2017-08-13] MEDS: predniSONE 20 MG TABLET PO SCH (09:19)
[2017-08-13] MEDS: ENOXAPARIN 40 MG/0.4 ML SYRINGE SUBCUT SCH (09:19)
[2017-08-13] MEDS: MAGNESIUM OXIDE 400 MG TABLET PO SCH ×2 (15:12→22:09)
[2017-08-13] MEDS: amLODIPine 5 MG TABLET PO SCH (15:12)
[2017-08-13] MEDS: INSULIN GLARGINE 100 UNIT/ML SUBCUT SCH (15:13)
[2017-08-13] MEDS: FUROSEMIDE 20 MG TABLET PO SCH ×2 (17:34→22:14)
[2017-08-13] MEDS: ASPIRIN EC 81 MG TABLET PO SCH (22:09)
[2017-08-14] MEDS: INSULIN LISPRO 100 UNIT/ML SUBCUT SCH ×6 (00:37→20:31)
[2017-08-14] MEDS: ALBUTEROL 2.5 MG/3 ML NEB RESP TX SCH ×3 (08:21→20:41)
[2017-08-14] MEDS: TACROLIMUS 0.5 MG CAPSULE PO SCH ×2 (09:19→20:30)
[2017-08-14] MEDS: MYCOPHENOLATE MOFETIL 250 MG CAPSULE PO SCH ×2 (09:19→20:30)
[2017-08-14] MEDS: ACYCLOVIR 200 MG CAPSULE PO SCH (09:20)
[2017-08-14] MEDS: FUROSEMIDE 20 MG TABLET PO SCH ×2 (09:20→17:51)
[2017-08-14] MEDS: LOSARTAN 50 MG TABLET PO SCH ×2 (09:20→20:31)
[2017-08-14] MEDS: MAGNESIUM OXIDE 400 MG TABLET PO SCH ×2 (09:20→20:31)
[2017-08-14] MEDS: AMIODARONE 200 MG TABLET PO SCH (09:21)
[2017-08-14] MEDS: glyBURIDE 5 MG TABLET PO SCH ×2 (09:21→20:31)
[2017-08-14] MEDS: predniSONE 10 MG TABLET PO SCH (09:21)
[2017-08-14] MEDS: METOPROLOL TARTRATE 50 MG TABLET PO SCH ×2 (09:21→20:31)
[2017-08-14] MEDS: CHOLECALCIFEROL 1,000 UNIT TABLET PO SCH (09:22)
[2017-08-14] MEDS: BACITRACIN OINT 0.9 GM PACK TOP SCH (09:22)
[2017-08-14] MEDS: INSULIN GLARGINE 100 UNIT/ML SUBCUT SCH (09:22)
[2017-08-14] MEDS: amLODIPine 5 MG TABLET PO SCH (09:22)
[2017-08-14] MEDS: ENOXAPARIN 40 MG/0.4 ML SYRINGE SUBCUT SCH (09:22)
[2017-08-14] MEDS: sitaGLIPtin 100 MG TABLET PO SCH (09:22)
[2017-08-14] MEDS: BENZONATATE 100 MG CAPSULE PO PRN (10:03)
[2017-08-14] MEDS: ATENOLOL 25 MG TABLET PO SCH ×2 (10:03→20:31)
[2017-08-14] MEDS: ASPIRIN EC 81 MG TABLET PO SCH (20:31)
[2017-08-15] MEDS: INSULIN LISPRO 100 UNIT/ML SUBCUT SCH ×6 (02:12→21:39)
[2017-08-15] MEDS: hydrALAZINE 20 MG/1 ML VIAL IV PRN (04:14)
[2017-08-15 06:08] LABS: Eosinophils % 0.2 % (0.00-10.9); Hemoglobin 8.3 GM/DL (12.0-16.0); Immature Granulocytes % 0.5 %; Immature Granulocytes Absolute 0.03 #; Lymphocytes # 1.2 10*3/uL (1.4-4.0); Lymphocytes % 21.3 % (21.3-54.2); Mean Corpuscular HGB Conc 31.9 GM/DL (32-36); Mean Corpuscular Hemoglobin 29 PG (27-34); Mean Corpuscular Volume 92.2 FL (87-102); Mean Platelet Volume 9.5 FL (9.6-12.0); Monocytes # 0.5 10*3/uL (0.11-0.8); Monocytes % 8.2 % (1.7-12.7); Neutrophils # 3.9 10*3/uL (1.4-7.4); Neutrophils % 69.8 % (38.7-73.9); Platelet Count 304 T/CUMM (130-400); Red Blood Count 2.82 MC/CUMM (3.8-5.5); Red Cell Distribution Width 15.9 % (9.3-17.3); White Blood Count 5.6 T/CUMM (4-12)
[2017-08-15 06:37] LABS: Calcium 8.5 MG/DL (8.5-10.1); Magnesium 2.1 MG/DL (1.8-2.4); Osmolality,Calculated 308.1 MOS/KG (273-304); Potassium 4.9 MMOL/L (3.5-5.1)
[2017-08-15] MEDS: ALBUTEROL 2.5 MG/3 ML NEB RESP TX SCH ×3 (07:55→20:32)
[2017-08-15] MEDS: FUROSEMIDE 20 MG TABLET PO SCH ×2 (08:59→18:07)
[2017-08-15] MEDS: amLODIPine 5 MG TABLET PO SCH (08:59)
[2017-08-15] MEDS: BACITRACIN OINT 0.9 GM PACK TOP SCH (08:59)
[2017-08-15] MEDS: ENOXAPARIN 40 MG/0.4 ML SYRINGE SUBCUT SCH (08:59)
[2017-08-15] MEDS: CHOLECALCIFEROL 1,000 UNIT TABLET PO SCH (09:00)
[2017-08-15] MEDS: glyBURIDE 5 MG TABLET PO SCH ×2 (09:00→20:50)
[2017-08-15] MEDS: LOSARTAN 50 MG TABLET PO SCH ×2 (09:00→20:50)
[2017-08-15] MEDS: MYCOPHENOLATE MOFETIL 250 MG CAPSULE PO SCH ×2 (09:01→20:50)
[2017-08-15] MEDS: FEBUXOSTAT 80 MG TABLET PO SCH (09:01)
[2017-08-15] MEDS: TACROLIMUS 0.5 MG CAPSULE PO SCH ×2 (09:01→20:49)
[2017-08-15] MEDS: ACYCLOVIR 200 MG CAPSULE PO SCH (09:01)
[2017-08-15] MEDS: sitaGLIPtin 100 MG TABLET PO SCH (09:02)
[2017-08-15] MEDS: METOPROLOL TARTRATE 50 MG TABLET PO SCH ×2 (09:02→20:50)
[2017-08-15] MEDS: INSULIN GLARGINE 100 UNIT/ML SUBCUT SCH (09:02)
[2017-08-15] MEDS: MAGNESIUM OXIDE 400 MG TABLET PO SCH ×2 (09:02→20:50)
[2017-08-15] MEDS: predniSONE 10 MG TABLET PO SCH (09:02)
[2017-08-15] MEDS: ATENOLOL 25 MG TABLET PO SCH ×2 (09:02→20:50)
[2017-08-15] MEDS: AMIODARONE 200 MG TABLET PO SCH (09:02)
[2017-08-15] MEDS: ASPIRIN EC 81 MG TABLET PO SCH (20:50)
[2017-08-16] MEDS: INSULIN LISPRO 100 UNIT/ML SUBCUT SCH ×3 (00:35→09:14)
[2017-08-16 05:42] LABS: Calcium 8.9 MG/DL (8.5-10.1); Magnesium 2.4 MG/DL (1.8-2.4)
[2017-08-16 05:43] LABS: Osmolality,Calculated 304.5 MOS/KG (273-304); Potassium 5.3 MMOL/L (3.5-5.1)
[2017-08-16] MEDS: ALBUTEROL 2.5 MG/3 ML NEB RESP TX SCH ×2 (08:16→12:00)
[2017-08-16 08:20] VITALS: BP 146/71
[2017-08-16] MEDS: LOSARTAN 50 MG TABLET PO SCH (09:02)
[2017-08-16] MEDS: TACROLIMUS 0.5 MG CAPSULE PO SCH (09:02)
[2017-08-16] MEDS: BACITRACIN OINT 0.9 GM PACK TOP SCH (09:03)
[2017-08-16] MEDS: predniSONE 10 MG TABLET PO SCH (09:03)
[2017-08-16] MEDS: ATENOLOL 25 MG TABLET PO SCH (09:03)
[2017-08-16] MEDS: ACYCLOVIR 200 MG CAPSULE PO SCH (09:03)
[2017-08-16] MEDS: AMIODARONE 200 MG TABLET PO SCH (09:03)
[2017-08-16] MEDS: sitaGLIPtin 100 MG TABLET PO SCH (09:03)
[2017-08-16] MEDS: METOPROLOL TARTRATE 50 MG TABLET PO SCH (09:03)
[2017-08-16] MEDS: CHOLECALCIFEROL 1,000 UNIT TABLET PO SCH (09:03)
[2017-08-16] MEDS: glyBURIDE 5 MG TABLET PO SCH (09:04)
[2017-08-16] MEDS: amLODIPine 5 MG TABLET PO SCH (09:05)
[2017-08-16] MEDS: MYCOPHENOLATE MOFETIL 250 MG CAPSULE PO SCH (09:05)
[2017-08-16] MEDS: ENOXAPARIN 40 MG/0.4 ML SYRINGE SUBCUT SCH (09:05)
[2017-08-16] MEDS: INSULIN GLARGINE 100 UNIT/ML SUBCUT SCH (09:05)
[2017-08-16] MEDS: MAGNESIUM OXIDE 400 MG TABLET PO SCH (09:14)
== END 2017-08-16 12:08 | disposition swing bed (61) | DRG 242 ==
LOC: SUATTDRO 12:15 → N.ICU 12:15 → N.TELEN 08-10 11:11
PROVIDERS: ADMIT Internal Medicine; ATTEND Internal Medicine

== ENCOUNTER 2017-09-10 13:26 | Inpatient (IN) ==
[2017-09-10] MEDS ORDERED: ALBUTEROL 2.5 MG/3 ML NEB RESP TX STA (13:59)
[2017-09-10 15:09] LABS: ABG Base Excess -13.7 MMOL/L (-2.5-2.5); ABG HCO3 13.9 MMOL/L (20-26); ABG Oxygen Saturation 91.2 % (95-100); ABG PCO2 34.7 MM HG (35-48); ABG PO2 67.6 MM HG (80-95); ABG TCO2 12.5 MMOL/L (23-27); Allen Test Positive
[2017-09-10 15:11] LABS: ABG PH 7.205 (7.35-7.45)
[2017-09-10] MEDS ORDERED: ALBUTEROL 2.5 MG/3 ML NEB RESP TX PRN (15:31)
[2017-09-10] MEDS ORDERED: ALBUTEROL/IPRATROPIUM 3 ML NEB RESP TX PRN (15:31)
[2017-09-10] MEDS ORDERED: ONDANSETRON 4 MG/2 ML VIAL IV PRN (15:31)
[2017-09-10] MEDS ORDERED: ACETAMINOPHEN 325 MG TABLET PO PRN (15:31)
[2017-09-10 15:37] LABS: Basophils % 0.1 % (0.0-0.8); Hematocrit 38.8 VOL% (35.7-47.0); Hemoglobin 12.1 GM/DL (12.0-16.0); Immature Granulocytes % 1.6 %; Immature Granulocytes Absolute 0.15 #; Lymphocytes # 0.4 10*3/uL (1.4-4.0); Lymphocytes % 4.2 % (21.3-54.2); Mean Corpuscular HGB Conc 31.2 GM/DL (32-36); Mean Corpuscular Hemoglobin 30 PG (27-34); Mean Corpuscular Volume 95.6 FL (87-102); Mean Platelet Volume 9.5 FL (9.6-12.0); Monocytes # 0.2 10*3/uL (0.11-0.8); Monocytes % 2.3 % (1.7-12.7); Neutrophils # 8.4 10*3/uL (1.4-7.4); Neutrophils % 91.8 % (38.7-73.9); Platelet Count 293 T/CUMM (130-400); Red Blood Count 4.06 MC/CUMM (3.8-5.5); Red Cell Distribution Width 17.4 % (9.3-17.3); White Blood Count 9.1 T/CUMM (4-12)
[2017-09-10 15:57] LABS: Lymphocytes 1 % (20-55); Platelet Estimate Adequate; Segmented Neutrophils 97 % (50-85); Total Cells Counted 100
[2017-09-10 15:58] LABS: Anisocytosis 1+; Macrocytosis 1+; Ovalocytes 1+; Poikilocytosis 1+; Polychromasia Slight
[2017-09-10 16:03] LABS: Albumin 2.1 G/DL (3.4-5.0); Bilirubin,Total 0.4 MG/DL (0.2-1.0); Calcium 8.1 MG/DL (8.5-10.1); Total Protein 4.7 G/DL (6.4-8.3)
[2017-09-10 16:09] LABS: Potassium 6.2 MMOL/L (3.5-5.1)
[2017-09-10 17:10] LABS: PT Patient Result 10.3 SECS
[2017-09-10] MEDS ORDERED: SODIUM POLYSTYRENE SULFATE 15 GM/60 ML BOTTLE PO ONE (17:17)
[2017-09-10 17:21] LABS: Albumin 2.2 G/DL (3.4-5.0)
[2017-09-10] MEDS: MEROPENEM 500 MG in SYRINGE 1 EACH IV SCH (18:09)
[2017-09-10] MEDS: SODIUM ACETATE 50 MEQ in SODIUM CHLORIDE 0.45% 1,000 ML IV SCH (18:10)
[2017-09-10] MEDS: CLINDAMYCIN INJ 600 MG in PREMIX 1 EACH IV SCH (18:10)
[2017-09-10] MEDS: SODIUM POLYSTYRENE SULFATE 15 GM/60 ML BOTTLE PO SCH (18:11)
[2017-09-10] MEDS: NOREPINEPHRINE 8 MG in SODIUM CHLORIDE 0.9% 242 ML IV SCH (19:48)
[2017-09-10] MEDS: ALBUTEROL/IPRATROPIUM 3 ML NEB RESP TX SCH (20:27)
[2017-09-11] MEDS: INSULIN REGULAR 100 UNIT/ML SUBCUT SCH ×5 (00:15→23:45)
[2017-09-11] MEDS: ALBUTEROL/IPRATROPIUM 3 ML NEB RESP TX SCH ×6 (00:22→20:07)
[2017-09-11] MEDS: CLINDAMYCIN INJ 600 MG in PREMIX 1 EACH IV SCH ×3 (01:46→17:57)
[2017-09-11] MEDS: SODIUM POLYSTYRENE SULFATE 15 GM/60 ML BOTTLE PO SCH ×2 (02:27→10:26)
[2017-09-11 02:56] LABS: ABG Base Excess -15.2 MMOL/L (-2.5-2.5); ABG HCO3 13.1 MMOL/L (20-26); ABG PCO2 40.8 MM HG (35-48); ABG TCO2 12.7 MMOL/L (23-27); Allen Test Positive
[2017-09-11 02:58] LABS: ABG PH 7.137 (7.35-7.45)
[2017-09-11] MEDS ORDERED: SODIUM BICARBONATE 50 MEQ/50 ML SYRINGE IV ONE (04:30)
[2017-09-11] MEDS: MEROPENEM 500 MG in SYRINGE 1 EACH IV SCH ×2 (05:15→18:03)
[2017-09-11 05:51] LABS: Osmolality,Calculated 312.8 MOS/KG (273-304)
[2017-09-11 06:51] LABS: Basophils % 0.2 % (0.0-0.8); Hematocrit 43.9 VOL% (35.7-47.0); Hemoglobin 12.9 GM/DL (12.0-16.0); Immature Granulocytes % 2.2 %; Immature Granulocytes Absolute 0.26 #; Lymphocytes # 0.7 10*3/uL (1.4-4.0); Lymphocytes % 6.3 % (21.3-54.2); Mean Corpuscular HGB Conc 29.4 GM/DL (32-36); Mean Corpuscular Hemoglobin 30 PG (27-34); Mean Corpuscular Volume 100.2 FL (87-102); Mean Platelet Volume 9.7 FL (9.6-12.0); Monocytes # 0.6 10*3/uL (0.11-0.8); NRBC # 0.04 10*3/uL; Neutrophils # 10.1 10*3/uL (1.4-7.4); Neutrophils % 86.3 % (38.7-73.9); Platelet Count 335 T/CUMM (130-400); Red Blood Count 4.38 MC/CUMM (3.8-5.5); Red Cell Distribution Width 17.5 % (9.3-17.3); White Blood Count 11.7 T/CUMM (4-12)
[2017-09-11] MEDS ORDERED: FUROSEMIDE 100 MG/10 ML VIAL IV ONE (09:51)
[2017-09-11] MEDS ORDERED: SODIUM POLYSTYRENE SULFATE 15 GM/60 ML BOTTLE PO ONE (09:52)
[2017-09-11 10:02] LABS: Lymphocytes,Pleural Fluid 83 %; Monocytes,Pleural Fluid 14 %; Neutrophils,Pleural Fluid 3 %
[2017-09-11 10:03] LABS: RBC,Pleural Fluid 900 T/CUMM
[2017-09-11 10:42] LABS: Total Protein,Body Fluid 2.1 G/DL
[2017-09-11 13:35] LABS: Calcium 7.4 MG/DL (8.5-10.1); Osmolality,Calculated 321.4 MOS/KG (273-304); Potassium 5.4 MMOL/L (3.5-5.1)
[2017-09-11] MEDS: SODIUM ACETATE 50 MEQ in SODIUM CHLORIDE 0.45% 1,000 ML IV SCH (14:28)
[2017-09-11] MEDS: NOREPINEPHRINE 8 MG in SODIUM CHLORIDE 0.9% 242 ML IV SCH (15:35)
[2017-09-11] MEDS ORDERED: ENOXAPARIN 30 MG/0.3 ML SYRINGE SUBCUT SCH (16:00)
[2017-09-12] MEDS: ALBUTEROL/IPRATROPIUM 3 ML NEB RESP TX SCH ×4 (00:29→12:00)
[2017-09-12] MEDS: CLINDAMYCIN INJ 600 MG in PREMIX 1 EACH IV SCH ×2 (01:21→08:44)
[2017-09-12] MEDS ORDERED: BUMETANIDE 1 MG/4 ML VIAL IV ONE (01:55)
[2017-09-12] MEDS: NOREPINEPHRINE 8 MG in SODIUM CHLORIDE 0.9% 242 ML IV SCH (02:58)
[2017-09-12] MEDS: MEROPENEM 500 MG in SYRINGE 1 EACH IV SCH (04:29)
[2017-09-12] MEDS: INSULIN REGULAR 100 UNIT/ML SUBCUT SCH ×2 (05:58→13:58)
[2017-09-12] MEDS ORDERED: methylPREDNISolone SOD SUC 40 MG/1 ML VIAL IV SCH (08:00)
[2017-09-12] MEDS: MORPHINE 2 MG/1 ML SYRINGE IV PRN ×2 (20:56→23:39)
[2017-09-13] MEDS: MORPHINE 2 MG/1 ML SYRINGE IV PRN ×6 (05:29→21:57)
[2017-09-14] MEDS: MORPHINE 2 MG/1 ML SYRINGE IV PRN (03:26)
[2017-09-14 04:03] VITALS: BP 73/38
== END 2017-09-14 05:42 | disposition expired | DRG 871 ==
LOC: EDUNIT# → EDBD → N.ED 13:26 → N.EDINP 14:12 → N.CC 16:05 → N.5E 09-12 17:10
PROVIDERS: ADMIT Hospitalist; ATTEND Hospitalist